=== PATIENT | male | born 1960 | race Caucasian/White ===

== ENCOUNTER 2017-03-07 08:38 | Emergency (ER) | payer MEDICAID ==
[~2017-03-07] VITALS: Ht 165.1 cm; Wt 72.6 kg
[2017-03-07 08:38] VITALS: BP_SYST 157
[~2017-03-07 08:38] MED LIST: LEVA0.31 IH; PHEN30TA41 PO; [UNRECOGNIZED DRUG - CODE] IM
[2017-03-07 09:41] LABS: BASOPHILS % (AUTO) 0.7 % (0.0-2.0); EOSINOPHILS # (AUTO) 0.6 K/uL (0.0-0.4); EOSINOPHILS % (AUTO) 8.9 % (0.0-4.0); HEMATOCRIT 46.9 % (36-54); HEMOGLOBIN 15.3 g/dL (14.0-18.0); LYMPHOCYTES # (AUTO) 1.3 K/uL (1.0-5.5); LYMPHOCYTES % (AUTO) 20.3 % (20.5-51.5); MEAN CORPUSCULAR HEMOGLOBIN 32 pg (27-31); MEAN CORPUSCULAR HGB CONC 33 % (32-36); MEAN CORPUSCULAR VOLUME 97 fL (79.0-98.0); MONOCYTES # (AUTO) 0.8 K/uL (0.0-1.0); MONOCYTES % (AUTO) 12.9 % (1.7-9.3); NEUTROPHILS # (AUTO) 3.7 K/uL (1.8-7.7); NEUTROPHILS % (AUTO) 57.2 % (40.0-70.0); PLATELET COUNT (AUTO) 199 K/uL (130-430); RED BLOOD CELL COUNT(AUTO) 4.86 MIL/uL (4.2-6.2); RED CELL DISTRIBUTION WIDTH 12.1 % (9.0-15.0); WHITE BLOOD COUNT (AUTO) 6.4 K/uL (4.8-10.8)
[2017-03-07 09:57] LABS: INR 1.1 (0.80-1.20); PROTHROMBIN TIME 10.7 SECS (9.5-12.5)
[2017-03-07 10:00] LABS: ALBUMIN 3.5 g/dL (3.4-4.8); CALCIUM 8.8 mg/dL (8.4-11.0); CREATININE 1.13 mg/dL (0.55-1.30); POTASSIUM 4.5 mmol/L (3.5-5.1); TOTAL BILIRUBIN 0.3 mg/dL (0.0-1.0)
[2017-03-07 11:18] VITALS: BP_SYST 132
== END 2017-03-07 11:18 | disposition home or self-care (01) ==
LOC: SED 08:38
DX: M79.89 Other specified soft tissue disorders (principal); Z86.59 Personal history of other mental and behavioral disorders
CPT/HCPCS: 36415; 80053; 85025; 85379; 85610-TC; 85730-TC; 93971; 99285

== ENCOUNTER 2022-05-02 15:46 | Inpatient (IN) | payer MEDICAID ==
[~2022-05-02] VITALS: Ht 172.7 cm; Wt 80.7 kg
[2022-05-02 15:46] VITALS: BP_SYST 116
[~2022-05-02 15:46] MED LIST changes: -PHEN30TA41 PO; +PHEN30TA49 PO
[2022-05-02 17:03] LABS: BASOPHILS % (AUTO) 0.3 % (0.0-2.0); EOSINOPHILS # (AUTO) 0.3 K/uL (0.0-0.4); EOSINOPHILS % (AUTO) 2.7 % (0.0-4.0); HEMATOCRIT 40.4 % (36-54); HEMOGLOBIN 13.4 g/dL (14.0-18.0); LYMPHOCYTES # (AUTO) 1.2 K/uL (1.0-5.5); LYMPHOCYTES % (AUTO) 12.4 % (20.5-51.5); MEAN CORPUSCULAR HEMOGLOBIN 32 pg (27-31); MEAN CORPUSCULAR HGB CONC 33 % (32-36); MEAN CORPUSCULAR VOLUME 97 fL (79.0-98.0); MONOCYTES % (AUTO) 10.3 % (1.7-9.3); NEUTROPHILS # (AUTO) 7.2 K/uL (1.8-7.7); NEUTROPHILS % (AUTO) 74.3 % (40.0-70.0); PLATELET COUNT (AUTO) 149 K/uL (130-430); RED BLOOD CELL COUNT(AUTO) 4.17 MIL/uL (4.2-6.2); RED CELL DISTRIBUTION WIDTH 14.6 % (9.0-15.0); WHITE BLOOD COUNT (AUTO) 9.6 K/uL (4.8-10.8)
[2022-05-02 17:21] LABS: INR 1.1 (0.80-1.20); PROTHROMBIN TIME 11.1 SECS (9.5-12.5)
[2022-05-02 17:49] LABS: ANION GAP 6 (5-15); CALCIUM 8.7 mg/dL (8.4-11.0); CHLORIDE 104 mmol/L (98-107); CREATININE 0.83 mg/dL (0.55-1.30); GLUCOSE 103 mg/dL (70-99); UREA NITROGEN, BLOOD 16 mg/dL (8-21)
[2022-05-02 18:02] LABS: ALBUMIN 2.9 g/dL (3.4-4.8); ASPARTATE AMINOTRANSFERASE 17 U/L (10-37); TOTAL BILIRUBIN 0.4 mg/dL (0.0-1.0)
[2022-05-02 18:05] LABS: GFR AFRICAN AMERICAN 122 mL/min (>90)
[2022-05-02] MEDS ORDERED: FUROSEMIDE 40 MG/4 ML VIAL IVP ONE (18:15)
[2022-05-02] MEDS ORDERED: PANTOPRAZOLE SODIUM 80 MG in NS 100 ML IV ONE (18:15)
[2022-05-02 18:37] LABS: ALANINE AMINOTRANSFERASE 18 U/L (12-78)
[2022-05-02 18:46] LABS: BILIRUBIN,URINE NEGATIVE (NEGATIVE); BLOOD, URINE 2+ (NEGATIVE); CLARITY/URINE CLEAR (CLEAR); COLOR,URINE YELLOW (YELLOW); GLUCOSE,URINE NEGATIVE (NEGATIVE); KETONES,URINE NEGATIVE (NEGATIVE); LEUKOCYTE ESTERASE ,URINE NEGATIVE (NEGATIVE); NITRITE, URINE NEGATIVE (NEGATIVE); PH,URINE 6.5 (5.0-8.0); PROTEIN URINE NEGATIVE (NEGATIVE); UROBILINOGEN,URINE 0.2 (0.2-1.0)
[2022-05-02] MEDS ORDERED: GUAR1PAC4 PO (18:49)
[2022-05-02] MEDS ORDERED: FAMO-132 PO (18:49)
[2022-05-02] MEDS ORDERED: ALBUTEROL HFA INH (18:49)
[2022-05-02] MEDS ORDERED: PHEN60TA11 PO (18:49)
[2022-05-02] MEDS ORDERED: FERR250T2 PO (18:49)
[2022-05-02] MEDS ORDERED: FIBER-LAX PO (18:49)
[2022-05-02] MEDS ORDERED: SCOP1PAT21 TD (18:49)
[2022-05-02] MEDS ORDERED: [UNRECOGNIZED DRUG - CODE] PO (18:49)
[2022-05-02] MEDS ORDERED: ACET325T PO (18:49)
[2022-05-02] MEDS ORDERED: CHLO473M5 PO (18:49)
[2022-05-02] MEDS ORDERED: MULT-1089 PO (18:49)
[2022-05-02] MEDS ORDERED: IBUP-1968 PO (18:49)
[2022-05-02] MEDS ORDERED: GLYC2TAB21 PO (18:49)
[2022-05-02] MEDS ORDERED: POLY17PO4 PO (18:49)
[2022-05-02] MEDS ORDERED: VITD400 PO (18:49)
[2022-05-02] MEDS ORDERED: CLON2TAB11 PO (18:49)
[2022-05-02] MEDS ORDERED: TRAZ-250 PO (18:49)
[2022-05-02] MEDS ORDERED: CARB15DR93 EACH EAR (18:49)
[2022-05-02] MEDS ORDERED: PANTOPRAZOLE SODIUM 40 MG/VIAL (PROTONIX) ONE (18:55)
[2022-05-02 18:58] LABS: BACTERIA,URINE None Seen /HPF (None Seen); MUCUS,URINE None Seen /LPF (None Seen); RBC,URINE 20-50 /HPF (0-3); WBC,URINE 0-3 /HPF (0-3)
[2022-05-02 21:50] VITALS: BP_SYST 120
[2022-05-02 22:00] VITALS: BP_SYST 120
[2022-05-02] MEDS ORDERED: ACETAMINOPHEN 325 MG TABLET PO PRN (22:00)
[2022-05-02] MEDS ORDERED: LevALBUTEROL HCL 1.25 MG/0.5 ML *CONC.* VIAL.NEB (XOPENEX CONC.) INH PRN (22:15)
[2022-05-02] MEDS: PANTOPRAZOLE SODIUM 40 MG/VIAL (PROTONIX) IVP SCH (22:19)
[2022-05-02 22:25] VITALS: BP_SYST 100
[2022-05-02] MEDS: KCL 20 mEq in D5/0.45NS 1000mL 1,000 ML IV SCH (22:32)
[2022-05-02] MEDS ORDERED: KCL 20 mEq in D5/0.45NS 1000mL 1,000 ML IV ONE (22:33)
[2022-05-02] MEDS: LevALBUTEROL HCL 1.25 MG/0.5 ML *CONC.* VIAL.NEB (XOPENEX CONC.) INH SCH (23:35)
[2022-05-03] VITALS: BP_SYST 122
[2022-05-03 06:00] VITALS: BP_SYST 118
[2022-05-03 06:49] LABS: BASOPHILS % (AUTO) 0.4 % (0.0-2.0); EOSINOPHILS # (AUTO) 0.4 K/uL (0.0-0.4); EOSINOPHILS % (AUTO) 7.8 % (0.0-4.0); HEMATOCRIT 41.4 % (36-54); HEMOGLOBIN 13.7 g/dL (14.0-18.0); LYMPHOCYTES # (AUTO) 1.6 K/uL (1.0-5.5); LYMPHOCYTES % (AUTO) 28.2 % (20.5-51.5); MEAN CORPUSCULAR HEMOGLOBIN 32 pg (27-31); MEAN CORPUSCULAR HGB CONC 33 % (32-36); MEAN CORPUSCULAR VOLUME 97 fL (79.0-98.0); MONOCYTES # (AUTO) 0.9 K/uL (0.0-1.0); MONOCYTES % (AUTO) 15.1 % (1.7-9.3); NEUTROPHILS # (AUTO) 2.8 K/uL (1.8-7.7); NEUTROPHILS % (AUTO) 48.5 % (40.0-70.0); PLATELET COUNT (AUTO) 145 K/uL (130-430); RED BLOOD CELL COUNT(AUTO) 4.25 MIL/uL (4.2-6.2); RED CELL DISTRIBUTION WIDTH 14.7 % (9.0-15.0); WHITE BLOOD COUNT (AUTO) 5.7 K/uL (4.8-10.8)
[2022-05-03 07:21] LABS: CALCIUM 8.5 mg/dL (8.4-11.0); CREATININE 0.93 mg/dL (0.55-1.30)
[2022-05-03] MEDS: LevALBUTEROL HCL 1.25 MG/0.5 ML *CONC.* VIAL.NEB (XOPENEX CONC.) INH SCH ×3 (07:21→23:56)
[2022-05-03 08:59] VITALS: BP_SYST 130
[2022-05-03] MEDS: CHLORHEXIDINE GLUC 0.12% 15 ML MOUTHWASH UDC MM SCH ×2 (09:00→22:15)
[2022-05-03] MEDS: GLYCOPYRROLATE 1 MG TABLET PO SCH ×2 (09:00→22:12)
[2022-05-03] MEDS: CHOLECALCIFEROL (VITAMIN D-3) 400 UNIT TABLET PO SCH (12:46)
[2022-05-03] MEDS: PANTOPRAZOLE SODIUM 40 MG/VIAL (PROTONIX) IVP SCH ×2 (12:46→22:13)
[2022-05-03] MEDS: POLYETHYLENE GLYCOL 3350, 17 GM/ POWD.PACK PO SCH (12:46)
[2022-05-03] MEDS: MULTIVITAMINS TAB 1 TABLET PO SCH (12:47)
[2022-05-03] MEDS: PHENobarbital 30 MG TABLET PO SCH (12:47)
[2022-05-03] MEDS: KCL 20 mEq in D5/0.45NS 1000mL 1,000 ML IV SCH ×3 (12:58→22:13)
[2022-05-03 14:47] VITALS: BP_SYST 102; BP_SYST 156
[2022-05-03 18:10] VITALS: BP_SYST 107
[2022-05-03] MEDS: clonazePAM 0.5 MG TABLET PO SCH (22:11)
[2022-05-03] MEDS: traZODone HCL 50 MG TABLET (DESYREL) PO SCH (22:14)
[2022-05-04 00:26] VITALS: BP_SYST 94
[2022-05-04 07:05] LABS: BASOPHILS % (AUTO) 0.3 % (0.0-2.0); EOSINOPHILS # (AUTO) 0.3 K/uL (0.0-0.4); EOSINOPHILS % (AUTO) 6.8 % (0.0-4.0); HEMATOCRIT 40.1 % (36-54); HEMOGLOBIN 13.2 g/dL (14.0-18.0); LYMPHOCYTES # (AUTO) 1.2 K/uL (1.0-5.5); LYMPHOCYTES % (AUTO) 26.2 % (20.5-51.5); MEAN CORPUSCULAR HEMOGLOBIN 32 pg (27-31); MEAN CORPUSCULAR HGB CONC 33 % (32-36); MEAN CORPUSCULAR VOLUME 98 fL (79.0-98.0); MONOCYTES # (AUTO) 0.7 K/uL (0.0-1.0); MONOCYTES % (AUTO) 14.7 % (1.7-9.3); NEUTROPHILS # (AUTO) 2.4 K/uL (1.8-7.7); PLATELET COUNT (AUTO) 143 K/uL (130-430); RED CELL DISTRIBUTION WIDTH 14.6 % (9.0-15.0); WHITE BLOOD COUNT (AUTO) 4.6 K/uL (4.8-10.8)
[2022-05-04 07:08] LABS: INR 1.1 (0.80-1.20); PROTHROMBIN TIME 10.7 SECS (9.5-12.5)
[2022-05-04 07:14] LABS: CALCIUM 8.5 mg/dL (8.4-11.0); CREATININE 0.73 mg/dL (0.55-1.30)
[2022-05-04] MEDS: LevALBUTEROL HCL 1.25 MG/0.5 ML *CONC.* VIAL.NEB (XOPENEX CONC.) INH SCH ×2 (07:46→15:48)
[2022-05-04 07:59] VITALS: BP_SYST 150
[2022-05-04] MEDS: GLYCOPYRROLATE 1 MG TABLET PO SCH ×2 (09:00→21:00)
[2022-05-04] MEDS: MULTIVITAMINS TAB 1 TABLET PO SCH (10:15)
[2022-05-04] MEDS: CHOLECALCIFEROL (VITAMIN D-3) 400 UNIT TABLET PO SCH (10:16)
[2022-05-04] MEDS: PHENobarbital 30 MG TABLET PO SCH (10:16)
[2022-05-04] MEDS: CHLORHEXIDINE GLUC 0.12% 15 ML MOUTHWASH UDC MM SCH (10:17)
[2022-05-04] MEDS: PANTOPRAZOLE SODIUM 40 MG/VIAL (PROTONIX) IVP SCH ×2 (10:17→21:00)
[2022-05-04] MEDS: POLYETHYLENE GLYCOL 3350, 17 GM/ POWD.PACK PO SCH (10:18)
[2022-05-04] MEDS: KCL 20 mEq in D5/0.45NS 1000mL 1,000 ML IV SCH ×2 (10:39→12:45)
[2022-05-04 11:34] VITALS: BP_SYST 105
[2022-05-04 18:07] VITALS: BP_SYST 116
[2022-05-04 20:03] VITALS: BP_SYST 106
[2022-05-04 20:09] VITALS: BP_SYST 102
[2022-05-04] MEDS: clonazePAM 0.5 MG TABLET PO SCH (21:00)
[2022-05-04] MEDS: traZODone HCL 50 MG TABLET (DESYREL) PO SCH (21:00)
[2022-05-05] MEDS: LevALBUTEROL HCL 1.25 MG/0.5 ML *CONC.* VIAL.NEB (XOPENEX CONC.) INH SCH ×4 (00:01→23:27)
[2022-05-05 06:48] LABS: INR 1.1 (0.80-1.20); PROTHROMBIN TIME 10.7 SECS (9.5-12.5)
[2022-05-05 07:01] LABS: CALCIUM 8.9 mg/dL (8.4-11.0); CREATININE 0.69 mg/dL (0.55-1.30)
[2022-05-05 07:43] LABS: BASOPHILS % (AUTO) 0.5 % (0.0-2.0); EOSINOPHILS # (AUTO) 0.3 K/uL (0.0-0.4); EOSINOPHILS % (AUTO) 6.2 % (0.0-4.0); HEMATOCRIT 43.9 % (36-54); HEMOGLOBIN 14.6 g/dL (14.0-18.0); LYMPHOCYTES # (AUTO) 1.2 K/uL (1.0-5.5); LYMPHOCYTES % (AUTO) 21.8 % (20.5-51.5); MEAN CORPUSCULAR HEMOGLOBIN 33 pg (27-31); MEAN CORPUSCULAR HGB CONC 33 % (32-36); MEAN CORPUSCULAR VOLUME 98 fL (79.0-98.0); MONOCYTES # (AUTO) 0.7 K/uL (0.0-1.0); MONOCYTES % (AUTO) 12.8 % (1.7-9.3); NEUTROPHILS # (AUTO) 3.2 K/uL (1.8-7.7); NEUTROPHILS % (AUTO) 58.7 % (40.0-70.0); PLATELET COUNT (AUTO) 160 K/uL (130-430); RED BLOOD CELL COUNT(AUTO) 4.49 MIL/uL (4.2-6.2); RED CELL DISTRIBUTION WIDTH 14.2 % (9.0-15.0); WHITE BLOOD COUNT (AUTO) 5.5 K/uL (4.8-10.8)
[2022-05-05 08:38] VITALS: BP_SYST 116
[2022-05-05] MEDS: CHLORHEXIDINE GLUC 0.12% 15 ML MOUTHWASH UDC MM SCH ×3 (09:00→21:18)
[2022-05-05] MEDS: PANTOPRAZOLE SODIUM 40 MG/VIAL (PROTONIX) IVP SCH ×2 (10:54→21:00)
[2022-05-05] MEDS: SCOPOLAMINE HYDROBROMIDE 1 MG PATCH .72 H (TRANSDERM-SCOP) TD SCH (10:54)
[2022-05-05] MEDS: POLYETHYLENE GLYCOL 3350, 17 GM/ POWD.PACK PO SCH (10:54)
[2022-05-05] MEDS: CHOLECALCIFEROL (VITAMIN D-3) 400 UNIT TABLET PO SCH (10:55)
[2022-05-05] MEDS: MULTIVITAMINS TAB 1 TABLET PO SCH (10:55)
[2022-05-05] MEDS: PHENobarbital 30 MG TABLET PO SCH (10:55)
[2022-05-05] MEDS: GLYCOPYRROLATE 1 MG TABLET PO SCH ×2 (10:56→21:18)
[2022-05-05 11:56] VITALS: BP_SYST 141
[2022-05-05 16:14] VITALS: BP_SYST 133
[2022-05-05] MEDS: KCL 20 mEq in D5/0.45NS 1000mL 1,000 ML IV SCH ×2 (17:00→21:49)
[2022-05-05 20:00] VITALS: BP_SYST 127
[2022-05-05] MEDS: traZODone HCL 50 MG TABLET (DESYREL) PO SCH (21:18)
[2022-05-05] MEDS: clonazePAM 0.5 MG TABLET PO SCH (21:18)
[2022-05-06 00:42] VITALS: BP_SYST 107
[2022-05-06] MEDS: LevALBUTEROL HCL 1.25 MG/0.5 ML *CONC.* VIAL.NEB (XOPENEX CONC.) INH SCH ×3 (07:41→23:53)
[2022-05-06 08:00] VITALS: BP_SYST 110
[2022-05-06] MEDS: PANTOPRAZOLE SODIUM 40 MG/VIAL (PROTONIX) IVP SCH ×2 (09:00→22:56)
[2022-05-06] MEDS: GLYCOPYRROLATE 1 MG TABLET PO SCH ×2 (09:00→22:54)
[2022-05-06] MEDS: CHLORHEXIDINE GLUC 0.12% 15 ML MOUTHWASH UDC MM SCH ×2 (09:58→22:58)
[2022-05-06] MEDS: POLYETHYLENE GLYCOL 3350, 17 GM/ POWD.PACK PO SCH (09:58)
[2022-05-06] MEDS: CHOLECALCIFEROL (VITAMIN D-3) 400 UNIT TABLET PO SCH (09:58)
[2022-05-06] MEDS: PHENobarbital 30 MG TABLET PO SCH (09:59)
[2022-05-06] MEDS: SCOPOLAMINE HYDROBROMIDE 1 MG PATCH .72 H (TRANSDERM-SCOP) TD SCH (09:59)
[2022-05-06] MEDS: MULTIVITAMINS TAB 1 TABLET PO SCH (09:59)
[2022-05-06 11:33] VITALS: BP_SYST 118
[2022-05-06 12:00] VITALS: BP_SYST 114
[2022-05-06] MEDS: KCL 20 mEq in D5/0.45NS 1000mL 1,000 ML IV SCH ×2 (13:00→23:00)
[2022-05-06 16:26] VITALS: BP_SYST 112
[2022-05-06 20:00] VITALS: BP_SYST 129
[2022-05-06] MEDS: traZODone HCL 50 MG TABLET (DESYREL) PO SCH (22:54)
[2022-05-06] MEDS: clonazePAM 0.5 MG TABLET PO SCH (22:56)
[2022-05-07] VITALS: BP_SYST 112
[2022-05-07 07:01] LABS: BASOPHILS % (AUTO) 0.6 % (0.0-2.0); EOSINOPHILS # (AUTO) 0.4 K/uL (0.0-0.4); EOSINOPHILS % (AUTO) 8.6 % (0.0-4.0); HEMATOCRIT 43.3 % (36-54); HEMOGLOBIN 14.5 g/dL (14.0-18.0); LYMPHOCYTES # (AUTO) 1.5 K/uL (1.0-5.5); LYMPHOCYTES % (AUTO) 30.5 % (20.5-51.5); MEAN CORPUSCULAR HEMOGLOBIN 32 pg (27-31); MEAN CORPUSCULAR HGB CONC 34 % (32-36); MEAN CORPUSCULAR VOLUME 97 fL (79.0-98.0); MONOCYTES # (AUTO) 0.7 K/uL (0.0-1.0); MONOCYTES % (AUTO) 13.3 % (1.7-9.3); NEUTROPHILS # (AUTO) 2.3 K/uL (1.8-7.7); PLATELET COUNT (AUTO) 152 K/uL (130-430); RED BLOOD CELL COUNT(AUTO) 4.48 MIL/uL (4.2-6.2); WHITE BLOOD COUNT (AUTO) 4.9 K/uL (4.8-10.8)
[2022-05-07 07:23] LABS: CALCIUM 8.6 mg/dL (8.4-11.0); CREATININE 0.88 mg/dL (0.55-1.30)
[2022-05-07] MEDS: LevALBUTEROL HCL 1.25 MG/0.5 ML *CONC.* VIAL.NEB (XOPENEX CONC.) INH SCH ×2 (08:00→15:24)
[2022-05-07] MEDS: KCL 20 mEq in D5/0.45NS 1000mL 1,000 ML IV SCH (09:00)
[2022-05-07] MEDS: PANTOPRAZOLE SODIUM 40 MG/VIAL (PROTONIX) IVP SCH (09:00)
[2022-05-07] MEDS: CHOLECALCIFEROL (VITAMIN D-3) 400 UNIT TABLET PO SCH (09:53)
[2022-05-07] MEDS: PHENobarbital 30 MG TABLET PO SCH (09:53)
[2022-05-07] MEDS: MULTIVITAMINS TAB 1 TABLET PO SCH (09:54)
[2022-05-07] MEDS: GLYCOPYRROLATE 1 MG TABLET PO SCH (09:55)
[2022-05-07] MEDS: POLYETHYLENE GLYCOL 3350, 17 GM/ POWD.PACK PO SCH (09:55)
[2022-05-07] MEDS: CHLORHEXIDINE GLUC 0.12% 15 ML MOUTHWASH UDC MM SCH (09:56)
[2022-05-07 11:20] VITALS: BP_SYST 100
[2022-05-07 15:40] VITALS: BP_SYST 107
[2022-05-07 17:38] VITALS: BP_SYST 110
[2022-05-07 17:44] VITALS: BP_SYST 110
== END 2022-05-07 19:05 | disposition home or self-care (01) | DRG 253 ==
LOC: SED 15:46 → STU 18:35
PROVIDERS: ADMIT Family Medicine; ATTEND Family Medicine
DX: K92.2 Gastrointestinal hemorrhage, unspecified (principal); E44.0 Moderate protein-calorie malnutrition; R56.9 Unspecified convulsions; F03.90 Unspecified dementia, unspecified severity, without behavioral disturbance, psychotic disturbance, mood disturbance, and anxiety; R00.1 Bradycardia, unspecified; Z20.822 Contact with and (suspected) exposure to COVID-19; F79 Unspecified intellectual disabilities; Z68.27 Body mass index [BMI] 27.0-27.9, adult; D64.9 Anemia, unspecified
CPT/HCPCS: 36415; 70450-TC; 71045; 76376; 76700-TC; 80048; 80053; 81000; 82550; 82962; 83735; 83880; 84484; 85025; 85610-TC; 85730-TC; 86886; 86900; 86901; 87040; 87086; 93005; 94640; 94760; 96361; 96374; 99285; C9113; G0378; J1940; J7612

== ENCOUNTER 2023-08-04 22:22 | Inpatient (IN) | payer MEDICAID ==
[~2023-08-04] VITALS: Ht 172.7 cm; Wt 84.4 kg
[~2023-08-04 22:22] MED LIST changes: +ACET325T PO; +ALBUTEROL HFA INH; +CARB15DR93 EACH EAR; +CHLO473M5 PO; +CLON2TAB11 PO; +FAMO-132 PO; +FERR250T2 PO; +FIBER-LAX PO; +GLYC2TAB21 PO; +GUAR1PAC4 PO; +IBUP-1968 PO; +MULT-1089 PO; +PHEN60TA11 PO; +POLY17PO4 PO; +SCOP1PAT21 TD; +TRAZ-250 PO; +VITD400 PO; +[UNRECOGNIZED DRUG - CODE] PO
[2023-08-04 22:26] VITALS: BP_SYST 103; PULSE 55; RESP 13; TEMP 96.5; O2SAT 95
[2023-08-04 23:38] LABS: BASOPHILS % (AUTO) 0.2 % (0.0-2.0); EOSINOPHILS # (AUTO) 0.2 K/uL (0.0-0.4); HEMATOCRIT 39.4 % (36-54); HEMOGLOBIN 13.4 g/dL (14.0-18.0); LYMPHOCYTES % (AUTO) 17.7 % (20.5-51.5); MEAN CORPUSCULAR HEMOGLOBIN 32 pg (27-31); MEAN CORPUSCULAR HGB CONC 34 % (32-36); MEAN CORPUSCULAR VOLUME 94 fL (79.0-98.0); MONOCYTES # (AUTO) 0.5 K/uL (0.0-1.0); MONOCYTES % (AUTO) 9.6 % (1.7-9.3); NEUTROPHILS # (AUTO) 3.9 K/uL (1.8-7.7); NEUTROPHILS % (AUTO) 69.5 % (40.0-70.0); PLATELET COUNT (AUTO) 177 K/uL (130-430); RED BLOOD CELL COUNT(AUTO) 4.18 MIL/uL (4.2-6.2); RED CELL DISTRIBUTION WIDTH 13.2 % (9.0-15.0); WHITE BLOOD COUNT (AUTO) 5.7 K/uL (4.8-10.8)
[2023-08-04 23:41] LABS: ANION GAP 6 (5-15); CALCIUM 8.6 mg/dL (8.4-11.0); CARBON DIOXIDE 30 mmol/L (23-29); CHLORIDE 106 mmol/L (98-107); CREATININE 0.78 mg/dL (0.55-1.30); GFR AFRICAN AMERICAN 130 mL/min (>90); GLUCOSE 109 mg/dL (74-106); POTASSIUM 3.5 mmol/L (3.5-5.1); SODIUM SERUM 142 mmol/L (136-145); UREA NITROGEN, BLOOD 9 mg/dL (8-21)
[2023-08-04 23:44] LABS: GFR NON AFRICAN-AMERICAN 108 mL/min (>90)
[2023-08-04 23:50] LABS: ALANINE AMINOTRANSFERASE 17 U/L (12-78); ALBUMIN 2.8 g/dL (3.4-4.8); ASPARTATE AMINOTRANSFERASE 16 U/L (10-37); TOTAL BILIRUBIN 0.2 mg/dL (0.0-1.0); TOTAL PROTEIN, SERUM 7.4 g/dL (6.4-8.3)
[2023-08-04 23:57] LABS: COVID19 ANTIGEN SOFIA FIA NEGATIVE (NEGATIVE)
[2023-08-05 00:02] LABS: INFLUENZA TYPE A Negative (NEGATIVE); INFLUENZA TYPE B NEGATIVE (NEGATIVE)
[2023-08-05 01:03] LABS: ABG O2 SAT% ESTIMATE 97.4 % (94.0-100.0); ALLEN'S TEST POSITIVE (P); BLOOD GAS BASE EXCESS 2.4 mmol/L (-3.0-3.0); BLOOD GAS HCO3 28.2 mmol/L (21.0-27.0); BLOOD GAS PCO2 47.9 mmHg (32.0-45.0); BLOOD GAS PH 7.388 (7.350-7.450); BLOOD GAS PO2 99.6 mmHg (75.0-100.0)
[2023-08-05] MEDS ORDERED: AZITHROMYCIN 250 MG TABLET PO ONE (02:15)
[2023-08-05] MEDS ORDERED: PIPERACILLIN/TAZOBACTAM 4.5 GM/VIAL (ZOSYN) IV ONE (02:19)
[2023-08-05] MEDS ORDERED: VANCOMYCIN HCL 1000 MG/VIAL IV ONE (02:21)
[2023-08-05] MEDS ORDERED: AZITHROMYCIN 500 MG/VIAL (ZITHROMAX) IV ONE (02:22)
[2023-08-05] MEDS: NACL 0.9% 1,000 ML IV ONE (02:42)
[2023-08-05] MEDS: ATROPINE SULFATE 1 MG/10 ML SYRINGE IVP ONE (02:54)
[2023-08-05] MEDS: AZITHROMYCIN 500 MG in NS 250 ML IV ONE (03:00)
[2023-08-05 04:39] LABS: BARBITURATE, URINE POSITIVE (NEG <=200); BENZODIAZEPINE, URINE NEGATIVE (NEG <=150); CANNABINOID, URINE NEGATIVE (NEG <=50); COCAINE, URINE NEGATIVE (NEG <=150); METHAMPHETAMINES SCREEN,URINE NEGATIVE (NEG <=500); OPIATE, URINE NEGATIVE (NEG <=100); PHENCYCLIDINE SCREEN,URINE NEGATIVE (NEG <=25); UR TRICYCLIC ANTIDEPRESSANTS NEGATIVE (NEG <=300); URINE AMPHETAMINE NEGATIVE (NEG <=500); URINE METHADONE NEGATIVE (NEG <=200); URINE OXYCODONE SCREEN NEGATIVE (NEG <=100)
[2023-08-05] MEDS: PIPERACILLIN/TAZO 4.5 GM in NS 100 ML IV ONE (05:00)
[2023-08-05] MEDS ORDERED: ATOR20TA64 PO (05:34)
[2023-08-05] MEDS ORDERED: AUG875 PO (05:34)
[2023-08-05] MEDS ORDERED: CLOT15CR5 TP (05:34)
[2023-08-05] MEDS ORDERED: FURO20TA4 PO (05:34)
[2023-08-05] MEDS ORDERED: LEVE500T21 PO (05:34)
[2023-08-05] MEDS: VANCOMYCIN HCL 1,000 MG in NS 250 ML IV SCH (06:13)
[2023-08-05] MEDS ORDERED: DOPamine PREMIX 250 ML IV PRN (09:00)
[2023-08-05] MEDS ORDERED: ONDANSETRON HCL 4 MG/2 ML VIAL IVP PRN (11:45)
[2023-08-05] MEDS ORDERED: ACETAMINOPHEN 325 MG TABLET PO PRN ×2 (11:45→12:15)
[2023-08-05] MEDS ORDERED: LORazepam 2 MG/ML VIAL IVP PRN (11:45)
[2023-08-05] MEDS ORDERED: NALOXONE HCL 0.4 MG/ML AMP (NARCAN) IVP PRN ×2 (11:45)
[2023-08-05] MEDS ORDERED: SCOPOLAMINE HYDROBROMIDE 1 MG PATCH .72 H (TRANSDERM-SCOP) TD SCH (11:45)
[2023-08-05] MEDS ORDERED: HYDROcodone/ACETAMIN 10-325 MG TAB PO PRN (11:45)
[2023-08-05] MEDS ORDERED: IBUPROFEN 400 MG TABLET PO PRN (11:45)
[2023-08-05] MEDS ORDERED: HYDROcodone/ACETAMIN 5-325 MG TAB (NORCO/ VICODIN) PO PRN (11:45)
[2023-08-05] MEDS: DOPamine PREMIX 250 ML IV PRN (12:06)
[2023-08-05 12:14] LABS: PROTHROMBIN TIME 10.7 SECS (9.5-12.5)
[2023-08-05 13:03] VITALS: BP_SYST 96; PULSE 62; O2SAT 97
[2023-08-05] MEDS: NORMAL SALINE 5 ML DISP.SYRIN IVF SCH (15:00)
[2023-08-05] MEDS ORDERED: ALBUTEROL 90 MCG INH SCH (15:00)
[2023-08-05 15:11] VITALS: O2SAT 92
[2023-08-05] MEDS: ALBUTEROL SULFATE 0.083% 2.5 MG/3 ML VIAL.NEB INH SCH (15:11)
[2023-08-05 19:49] VITALS: O2SAT 97
[2023-08-05] MEDS ORDERED: CARBAMIDE PEROXIDE 6.5% EAR DROPS (DEBROX) OT SCH (21:00)
[2023-08-05] MEDS ORDERED: FIBER LAX PO SCH (21:00)
[2023-08-05] MEDS ORDERED: GLYCOPYRROLATE PO SCH (21:00)
[2023-08-05] MEDS: AMOXICILLIN/POTASSIUM CLAV 875 MG TABLET PO SCH (21:04)
[2023-08-05] MEDS: PHENobarbital 30 MG TABLET PO SCH (21:06)
[2023-08-05] MEDS: traZODone HCL 50 MG TABLET (DESYREL) PO SCH (21:07)
[2023-08-05] MEDS: levETIRAcetam 500 MG TABLET PO SCH (21:08)
[2023-08-05] MEDS: FAMOTIDINE 20 MG TABLET PO SCH (21:09)
[2023-08-05] MEDS: GLYCOPYRROLATE 1 MG TABLET PO SCH (21:10)
[2023-08-05] MEDS: CHLORHEXIDINE GLUC 0.12% 15 ML MOUTHWASH UDC MM SCH (21:11)
[2023-08-05] MEDS: clonazePAM 0.5 MG TABLET PO SCH (21:42)
[2023-08-05 23:36] VITALS: O2SAT 94
[2023-08-06] VITALS (20 sets, daily range): BP systolic 89–127; PULSE 48–71; RESP 12–20; TEMP 98–98.9; O2SAT 91–97
[2023-08-06] MEDS ORDERED: PIPERACILLIN/TAZOBACTAM 4.5 GM/VIAL (ZOSYN) IV ONE (05:59)
[2023-08-06] MEDS: PIPERACILLIN/TAZO 4.5 GM in D5W 100 ML IV SCH (06:07)
[2023-08-06 06:18] LABS: BASOPHILS % (AUTO) 0.5 % (0.0-2.0); EOSINOPHILS # (AUTO) 0.2 K/uL (0.0-0.4); EOSINOPHILS % (AUTO) 2.6 % (0.0-4.0); HEMATOCRIT 38.3 % (36-54); LYMPHOCYTES # (AUTO) 1.1 K/uL (1.0-5.5); LYMPHOCYTES % (AUTO) 16.7 % (20.5-51.5); MEAN CORPUSCULAR HEMOGLOBIN 32 pg (27-31); MEAN CORPUSCULAR HGB CONC 34 % (32-36); MEAN CORPUSCULAR VOLUME 94 fL (79.0-98.0); MONOCYTES # (AUTO) 0.8 K/uL (0.0-1.0); MONOCYTES % (AUTO) 12.7 % (1.7-9.3); NEUTROPHILS # (AUTO) 4.4 K/uL (1.8-7.7); NEUTROPHILS % (AUTO) 67.5 % (40.0-70.0); PLATELET COUNT (AUTO) 186 K/uL (130-430); RED BLOOD CELL COUNT(AUTO) 4.07 MIL/uL (4.2-6.2); RED CELL DISTRIBUTION WIDTH 13.5 % (9.0-15.0); WHITE BLOOD COUNT (AUTO) 6.5 K/uL (4.8-10.8)
[2023-08-06 06:55] LABS: ALBUMIN 2.5 g/dL (3.4-4.8); CALCIUM 8.3 mg/dL (8.4-11.0); CREATININE 0.74 mg/dL (0.55-1.30); POTASSIUM 3.6 mmol/L (3.5-5.1); TOTAL BILIRUBIN 0.3 mg/dL (0.0-1.0); TOTAL PROTEIN, SERUM 7.2 g/dL (6.4-8.3)
[2023-08-06] MEDS ORDERED: ATORVASTATIN 20 MG TABLET PO SCH (09:00)
[2023-08-06] MEDS ORDERED: FUROSEMIDE 20 MG TABLET PO SCH (09:00)
[2023-08-06] MEDS ORDERED: GUAR GUM PO SCH (09:00)
[2023-08-06] MEDS: CHOLECALCIFEROL (VITAMIN D-3) 400 UNIT TABLET PO SCH (09:00)
[2023-08-06] MEDS: CLOTRIMAZOLE/BETAMET DIPROP 15 GM TUBE TP SCH (09:00)
[2023-08-06] MEDS: FUROSEMIDE 20 MG/2 ML VIAL IVP SCH (09:44)
[2023-08-06] MEDS: MULTIVITAMINS TAB 1 TABLET PO SCH (09:44)
[2023-08-06] MEDS: FERROUS SULFATE 325 MG TABLET.DR PO SCH (09:44)
[2023-08-07] VITALS (38 sets, daily range): BP systolic 74–134; PULSE 46–77; RESP 16–19; TEMP 97.5–98.5; O2SAT 86–100
[2023-08-07 04:40] LABS: BASOPHILS % (AUTO) 0.3 % (0.0-2.0); EOSINOPHILS # (AUTO) 0.2 K/uL (0.0-0.4); EOSINOPHILS % (AUTO) 2.7 % (0.0-4.0); HEMATOCRIT 38.6 % (36-54); HEMOGLOBIN 13.1 g/dL (14.0-18.0); LYMPHOCYTES # (AUTO) 1.3 K/uL (1.0-5.5); LYMPHOCYTES % (AUTO) 18.5 % (20.5-51.5); MEAN CORPUSCULAR HEMOGLOBIN 32 pg (27-31); MEAN CORPUSCULAR HGB CONC 34 % (32-36); MEAN CORPUSCULAR VOLUME 94 fL (79.0-98.0); MONOCYTES # (AUTO) 0.9 K/uL (0.0-1.0); MONOCYTES % (AUTO) 13.1 % (1.7-9.3); NEUTROPHILS # (AUTO) 4.4 K/uL (1.8-7.7); NEUTROPHILS % (AUTO) 65.4 % (40.0-70.0); PLATELET COUNT (AUTO) 199 K/uL (130-430); RED BLOOD CELL COUNT(AUTO) 4.12 MIL/uL (4.2-6.2); RED CELL DISTRIBUTION WIDTH 13.3 % (9.0-15.0); WHITE BLOOD COUNT (AUTO) 6.8 K/uL (4.8-10.8)
[2023-08-07 05:10] LABS: ALBUMIN 2.5 g/dL (3.4-4.8); CALCIUM 8.2 mg/dL (8.4-11.0); CREATININE 0.84 mg/dL (0.55-1.30); POTASSIUM 3.6 mmol/L (3.5-5.1); TOTAL BILIRUBIN 0.3 mg/dL (0.0-1.0); TOTAL PROTEIN, SERUM 7.1 g/dL (6.4-8.3)
[2023-08-07 05:30] LABS: ERYTHROCYTE SEDIMENTATION RATE 46 MM/HR (0-15)
[2023-08-08] VITALS (45 sets, daily range): BP systolic 69–140; PULSE 40–72; RESP 11–27; TEMP 96.4–98.5; O2SAT 47–99
[2023-08-08 04:06] LABS: ERYTHROCYTE SEDIMENTATION RATE 57 MM/HR (0-15)
[2023-08-08 04:33] LABS: BASOPHILS % (AUTO) 0.4 % (0.0-2.0); CREATININE 0.97 mg/dL (0.55-1.30); EOSINOPHILS # (AUTO) 0.2 K/uL (0.0-0.4); EOSINOPHILS % (AUTO) 2.9 % (0.0-4.0); HEMATOCRIT 42.9 % (36-54); HEMOGLOBIN 14.5 g/dL (14.0-18.0); LYMPHOCYTES # (AUTO) 0.9 K/uL (1.0-5.5); LYMPHOCYTES % (AUTO) 10.7 % (20.5-51.5); MEAN CORPUSCULAR HEMOGLOBIN 32 pg (27-31); MEAN CORPUSCULAR HGB CONC 34 % (32-36); MEAN CORPUSCULAR VOLUME 94 fL (79.0-98.0); MONOCYTES # (AUTO) 0.9 K/uL (0.0-1.0); MONOCYTES % (AUTO) 10.7 % (1.7-9.3); NEUTROPHILS # (AUTO) 6.2 K/uL (1.8-7.7); NEUTROPHILS % (AUTO) 75.3 % (40.0-70.0); PLATELET COUNT (AUTO) 216 K/uL (130-430); RED BLOOD CELL COUNT(AUTO) 4.56 MIL/uL (4.2-6.2); RED CELL DISTRIBUTION WIDTH 13.1 % (9.0-15.0); WHITE BLOOD COUNT (AUTO) 8.3 K/uL (4.8-10.8)
[2023-08-08] MEDS: CALCIUM GLUC 2 GM/100ML-NACL 100 ML IV ONE (11:49)
[2023-08-09] VITALS (49 sets, daily range): BP systolic 64–154; PULSE 37–70; RESP 12–33; TEMP 96.7–98.6; O2SAT 90–100
[2023-08-09 05:06] LABS: ERYTHROCYTE SEDIMENTATION RATE 46 MM/HR (0-15)
[2023-08-09 05:32] LABS: BASOPHILS % (AUTO) 0.4 % (0.0-2.0); EOSINOPHILS # (AUTO) 0.2 K/uL (0.0-0.4); EOSINOPHILS % (AUTO) 3.2 % (0.0-4.0); HEMATOCRIT 42.6 % (36-54); HEMOGLOBIN 14.8 g/dL (14.0-18.0); LYMPHOCYTES # (AUTO) 1.3 K/uL (1.0-5.5); LYMPHOCYTES % (AUTO) 18.4 % (20.5-51.5); MEAN CORPUSCULAR HEMOGLOBIN 33 pg (27-31); MEAN CORPUSCULAR HGB CONC 35 % (32-36); MEAN CORPUSCULAR VOLUME 94 fL (79.0-98.0); MONOCYTES % (AUTO) 13.5 % (1.7-9.3); NEUTROPHILS # (AUTO) 4.6 K/uL (1.8-7.7); NEUTROPHILS % (AUTO) 64.5 % (40.0-70.0); PLATELET COUNT (AUTO) 246 K/uL (130-430); RED BLOOD CELL COUNT(AUTO) 4.53 MIL/uL (4.2-6.2); RED CELL DISTRIBUTION WIDTH 13.5 % (9.0-15.0); WHITE BLOOD COUNT (AUTO) 7.1 K/uL (4.8-10.8)
[2023-08-09 06:17] LABS: ALBUMIN 2.7 g/dL (3.4-4.8); CREATININE 1.07 mg/dL (0.55-1.30); POTASSIUM 4.1 mmol/L (3.5-5.1); TOTAL BILIRUBIN 0.2 mg/dL (0.0-1.0); TOTAL PROTEIN, SERUM 8.1 g/dL (6.4-8.3)
[2023-08-09] MEDS: MIDODRINE HCL 5 MG TABLET (PROAMATINE) PO SCH (15:59)
[2023-08-10] VITALS (39 sets, daily range): BP systolic 85–121; PULSE 44–64; RESP 10–27; TEMP 96.2–97.8; O2SAT 87–98
[2023-08-10 06:40] LABS: BASOPHILS % (AUTO) 0.4 % (0.0-2.0); EOSINOPHILS # (AUTO) 0.2 K/uL (0.0-0.4); EOSINOPHILS % (AUTO) 4.3 % (0.0-4.0); HEMATOCRIT 41.4 % (36-54); HEMOGLOBIN 13.9 g/dL (14.0-18.0); LYMPHOCYTES # (AUTO) 1.1 K/uL (1.0-5.5); LYMPHOCYTES % (AUTO) 22.9 % (20.5-51.5); MEAN CORPUSCULAR HEMOGLOBIN 32 pg (27-31); MEAN CORPUSCULAR HGB CONC 34 % (32-36); MEAN CORPUSCULAR VOLUME 94 fL (79.0-98.0); MONOCYTES # (AUTO) 0.6 K/uL (0.0-1.0); MONOCYTES % (AUTO) 12.7 % (1.7-9.3); NEUTROPHILS # (AUTO) 2.8 K/uL (1.8-7.7); NEUTROPHILS % (AUTO) 59.7 % (40.0-70.0); PLATELET COUNT (AUTO) 229 K/uL (130-430); RED BLOOD CELL COUNT(AUTO) 4.41 MIL/uL (4.2-6.2); RED CELL DISTRIBUTION WIDTH 13.3 % (9.0-15.0); WHITE BLOOD COUNT (AUTO) 4.8 K/uL (4.8-10.8)
[2023-08-10 07:20] LABS: CALCIUM 8.6 mg/dL (8.4-11.0); CREATININE 0.94 mg/dL (0.55-1.30); POTASSIUM 3.9 mmol/L (3.5-5.1)
[2023-08-10 08:26] LABS: ERYTHROCYTE SEDIMENTATION RATE 64 MM/HR (0-15)
[2023-08-11] VITALS (38 sets, daily range): BP systolic 82–150; PULSE 37–55; RESP 11–21; TEMP 97.7–98.4; O2SAT 92–100
[2023-08-11 06:10] LABS: BASOPHILS % (AUTO) 0.4 % (0.0-2.0); EOSINOPHILS # (AUTO) 0.3 K/uL (0.0-0.4); EOSINOPHILS % (AUTO) 3.7 % (0.0-4.0); HEMATOCRIT 40.5 % (36-54); HEMOGLOBIN 13.7 g/dL (14.0-18.0); LYMPHOCYTES # (AUTO) 1.2 K/uL (1.0-5.5); LYMPHOCYTES % (AUTO) 13.6 % (20.5-51.5); MEAN CORPUSCULAR HEMOGLOBIN 32 pg (27-31); MEAN CORPUSCULAR HGB CONC 34 % (32-36); MEAN CORPUSCULAR VOLUME 94 fL (79.0-98.0); MONOCYTES # (AUTO) 1.1 K/uL (0.0-1.0); NEUTROPHILS % (AUTO) 69.3 % (40.0-70.0); PLATELET COUNT (AUTO) 232 K/uL (130-430); RED CELL DISTRIBUTION WIDTH 13.2 % (9.0-15.0); WHITE BLOOD COUNT (AUTO) 8.6 K/uL (4.8-10.8)
[2023-08-11 06:15] LABS: CALCIUM 8.5 mg/dL (8.4-11.0); CREATININE 0.85 mg/dL (0.55-1.30); POTASSIUM 3.8 mmol/L (3.5-5.1)
[2023-08-11 06:36] LABS: ERYTHROCYTE SEDIMENTATION RATE 67 MM/HR (0-15)
[2023-08-12] VITALS (31 sets, daily range): BP systolic 88–115; PULSE 36–56; RESP 9–22; TEMP 97.6–98.6; O2SAT 91–100
[2023-08-12 05:11] LABS: EOSINOPHILS # (AUTO) 0.4 K/uL (0.0-0.4); HEMOGLOBIN 13.9 g/dL (14.0-18.0); MEAN CORPUSCULAR HGB CONC 34 % (32-36); MONOCYTES # (AUTO) 0.8 K/uL (0.0-1.0); MONOCYTES % (AUTO) 13.4 % (1.7-9.3); NEUTROPHILS # (AUTO) 3.2 K/uL (1.8-7.7)
[2023-08-12 05:52] LABS: ALBUMIN 2.7 g/dL (3.4-4.8); CALCIUM 8.7 mg/dL (8.4-11.0); CREATININE 1.06 mg/dL (0.55-1.30); POTASSIUM 4.4 mmol/L (3.5-5.1); TOTAL BILIRUBIN 0.2 mg/dL (0.0-1.0); TOTAL PROTEIN, SERUM 7.8 g/dL (6.4-8.3)
[2023-08-12 05:59] LABS: BASOPHILS % (AUTO) 0.5 % (0.0-2.0); EOSINOPHILS % (AUTO) 6.6 % (0.0-4.0); HEMATOCRIT 41.1 % (36-54); LYMPHOCYTES # (AUTO) 1.3 K/uL (1.0-5.5); LYMPHOCYTES % (AUTO) 23.3 % (20.5-51.5); MEAN CORPUSCULAR HEMOGLOBIN 32 pg (27-31); MEAN CORPUSCULAR VOLUME 95 fL (79.0-98.0); NEUTROPHILS % (AUTO) 56.2 % (40.0-70.0); PLATELET COUNT (AUTO) 240 K/uL (130-430); RED BLOOD CELL COUNT(AUTO) 4.35 MIL/uL (4.2-6.2); RED CELL DISTRIBUTION WIDTH 13.2 % (9.0-15.0); WHITE BLOOD COUNT (AUTO) 5.6 K/uL (4.8-10.8)
[2023-08-12] MEDS ORDERED: DOPamine PREMIX 250 ML IV PRN (08:45)
[2023-08-12] MEDS: FLUDROCORTISONE ACETATE 0.1 MG TABLET( FLORINEF) PO ONE (10:33)
[2023-08-12] MEDS: POLYETHYLENE GLYCOL 3350, 17 GM/ POWD.PACK PO PRN (21:48)
[2023-08-13] VITALS (30 sets, daily range): BP systolic 85–120; PULSE 40–65; RESP 11–21; TEMP 97.6–98.3; O2SAT 93–100
[2023-08-13 07:02] LABS: BASOPHILS % (AUTO) 0.7 % (0.0-2.0); EOSINOPHILS # (AUTO) 0.3 K/uL (0.0-0.4); EOSINOPHILS % (AUTO) 5.5 % (0.0-4.0); HEMATOCRIT 39.4 % (36-54); HEMOGLOBIN 13.2 g/dL (14.0-18.0); LYMPHOCYTES # (AUTO) 1.2 K/uL (1.0-5.5); LYMPHOCYTES % (AUTO) 22.9 % (20.5-51.5); MEAN CORPUSCULAR HEMOGLOBIN 32 pg (27-31); MEAN CORPUSCULAR HGB CONC 34 % (32-36); MEAN CORPUSCULAR VOLUME 95 fL (79.0-98.0); MONOCYTES # (AUTO) 0.5 K/uL (0.0-1.0); MONOCYTES % (AUTO) 10.2 % (1.7-9.3); NEUTROPHILS # (AUTO) 3.2 K/uL (1.8-7.7); NEUTROPHILS % (AUTO) 60.7 % (40.0-70.0); PLATELET COUNT (AUTO) 215 K/uL (130-430); RED BLOOD CELL COUNT(AUTO) 4.17 MIL/uL (4.2-6.2); RED CELL DISTRIBUTION WIDTH 12.9 % (9.0-15.0); WHITE BLOOD COUNT (AUTO) 5.3 K/uL (4.8-10.8)
[2023-08-13 08:17] LABS: CALCIUM 8.2 mg/dL (8.4-11.0); CREATININE 0.95 mg/dL (0.55-1.30)
[2023-08-13] MEDS: FLUDROCORTISONE ACETATE 0.1 MG TABLET( FLORINEF) PO SCH (08:43)
[2023-08-13 09:28] LABS: ERYTHROCYTE SEDIMENTATION RATE 72 MM/HR (0-15)
[2023-08-14] VITALS (20 sets, daily range): BP systolic 94–121; PULSE 39–70; RESP 11–16; TEMP 97.5–99.8; O2SAT 93–100
[2023-08-14 05:08] LABS: ERYTHROCYTE SEDIMENTATION RATE 57 MM/HR (0-15)
[2023-08-14 05:20] LABS: BASOPHILS % (AUTO) 0.4 % (0.0-2.0); EOSINOPHILS # (AUTO) 0.2 K/uL (0.0-0.4); EOSINOPHILS % (AUTO) 3.8 % (0.0-4.0); HEMATOCRIT 39.1 % (36-54); HEMOGLOBIN 13.2 g/dL (14.0-18.0); LYMPHOCYTES # (AUTO) 1.3 K/uL (1.0-5.5); LYMPHOCYTES % (AUTO) 25.4 % (20.5-51.5); MEAN CORPUSCULAR HEMOGLOBIN 32 pg (27-31); MEAN CORPUSCULAR HGB CONC 34 % (32-36); MEAN CORPUSCULAR VOLUME 94 fL (79.0-98.0); MONOCYTES # (AUTO) 0.6 K/uL (0.0-1.0); MONOCYTES % (AUTO) 11.8 % (1.7-9.3); NEUTROPHILS # (AUTO) 2.9 K/uL (1.8-7.7); NEUTROPHILS % (AUTO) 58.6 % (40.0-70.0); PLATELET COUNT (AUTO) 223 K/uL (130-430); RED BLOOD CELL COUNT(AUTO) 4.18 MIL/uL (4.2-6.2); RED CELL DISTRIBUTION WIDTH 13.2 % (9.0-15.0)
[2023-08-14 05:36] LABS: ALBUMIN 2.8 g/dL (3.4-4.8); CALCIUM 8.1 mg/dL (8.4-11.0); CREATININE 1.05 mg/dL (0.55-1.30); POTASSIUM 4.2 mmol/L (3.5-5.1); TOTAL BILIRUBIN 0.2 mg/dL (0.0-1.0); TOTAL PROTEIN, SERUM 7.9 g/dL (6.4-8.3)
[2023-08-14] MEDS: CALCIUM GLUC 2 GM/100ML-NACL 100 ML IV ONE (11:07)
[2023-08-14] MEDS ORDERED: GADOBENATE DIMEGLUMINE 529 MG/ML, 5 ML VIAL IV ONE (12:59)
[2023-08-14] MEDS: ACETAMINOPHEN 325 MG TABLET PO PRN (23:31)
[2023-08-15] VITALS (11 sets, daily range): BP systolic 94–120; PULSE 48–69; RESP 16–17; TEMP 96.7–97.8; O2SAT 91–99
[2023-08-15 06:10] LABS: BASOPHILS % (AUTO) 0.4 % (0.0-2.0); EOSINOPHILS # (AUTO) 0.2 K/uL (0.0-0.4); EOSINOPHILS % (AUTO) 2.3 % (0.0-4.0); HEMATOCRIT 37.7 % (36-54); HEMOGLOBIN 12.9 g/dL (14.0-18.0); LYMPHOCYTES # (AUTO) 1.3 K/uL (1.0-5.5); LYMPHOCYTES % (AUTO) 18.1 % (20.5-51.5); MEAN CORPUSCULAR HEMOGLOBIN 32 pg (27-31); MEAN CORPUSCULAR HGB CONC 34 % (32-36); MEAN CORPUSCULAR VOLUME 93 fL (79.0-98.0); MONOCYTES # (AUTO) 0.6 K/uL (0.0-1.0); MONOCYTES % (AUTO) 9.1 % (1.7-9.3); NEUTROPHILS # (AUTO) 4.9 K/uL (1.8-7.7); NEUTROPHILS % (AUTO) 70.1 % (40.0-70.0); PLATELET COUNT (AUTO) 217 K/uL (130-430); RED BLOOD CELL COUNT(AUTO) 4.07 MIL/uL (4.2-6.2); WHITE BLOOD COUNT (AUTO) 6.9 K/uL (4.8-10.8)
[2023-08-15 06:12] LABS: ERYTHROCYTE SEDIMENTATION RATE 76 MM/HR (0-15)
[2023-08-15 06:32] LABS: CALCIUM 8.2 mg/dL (8.4-11.0); CREATININE 1.03 mg/dL (0.55-1.30)
[2023-08-15] MEDS ORDERED: FLOR.1 PO (09:53)
[2023-08-15] MEDS ORDERED: MIDO5TAB4 PO (09:53)
[2023-08-16] VITALS (8 sets, daily range): BP systolic 94–124; PULSE 60–66; RESP 18; TEMP 97.7–98.2; O2SAT 92–98
[2023-08-16 06:54] LABS: BASOPHILS % (AUTO) 0.3 % (0.0-2.0); EOSINOPHILS # (AUTO) 0.1 K/uL (0.0-0.4); EOSINOPHILS % (AUTO) 1.7 % (0.0-4.0); HEMATOCRIT 38.9 % (36-54); HEMOGLOBIN 13.2 g/dL (14.0-18.0); LYMPHOCYTES # (AUTO) 1.1 K/uL (1.0-5.5); LYMPHOCYTES % (AUTO) 12.9 % (20.5-51.5); MEAN CORPUSCULAR HEMOGLOBIN 32 pg (27-31); MEAN CORPUSCULAR HGB CONC 34 % (32-36); MEAN CORPUSCULAR VOLUME 94 fL (79.0-98.0); MONOCYTES # (AUTO) 0.7 K/uL (0.0-1.0); MONOCYTES % (AUTO) 8.1 % (1.7-9.3); NEUTROPHILS # (AUTO) 6.7 K/uL (1.8-7.7); PLATELET COUNT (AUTO) 223 K/uL (130-430); RED BLOOD CELL COUNT(AUTO) 4.13 MIL/uL (4.2-6.2); RED CELL DISTRIBUTION WIDTH 13.2 % (9.0-15.0); WHITE BLOOD COUNT (AUTO) 8.7 K/uL (4.8-10.8)
[2023-08-16 07:00] LABS: ERYTHROCYTE SEDIMENTATION RATE 89 MM/HR (0-15)
[2023-08-16 07:42] LABS: ALBUMIN 2.8 g/dL (3.4-4.8); CALCIUM 8.4 mg/dL (8.4-11.0); CREATININE 1.03 mg/dL (0.55-1.30); TOTAL BILIRUBIN 0.2 mg/dL (0.0-1.0); TOTAL PROTEIN, SERUM 7.8 g/dL (6.4-8.3)
== END 2023-08-16 12:00 | disposition home or self-care (01) | DRG 720 ==
LOC: SED 22:22 → SMU 08-05 04:41 → SIC 08-06 08:00 → STU 08-15 → SMU 08-16 08:08
PROVIDERS: ADMIT Preventive Medicine Preventive Medicine/Occupational Environmental Medicine; ATTEND Preventive Medicine Preventive Medicine/Occupational Environmental Medicine
PROC: 02HV33Z Insertion of Infusion Device into Superior Vena Cava, Percutaneous Approach (ICD-10-PCS; principal; 2023-08-05)
PROC: B548ZZA Ultrasonography of Superior Vena Cava, Guidance (ICD-10-PCS; 2023-08-05)
DX: A41.9 Sepsis, unspecified organism (principal); J96.01 Acute respiratory failure with hypoxia; J69.0 Pneumonitis due to inhalation of food and vomit; I50.33 Acute on chronic diastolic (congestive) heart failure; I95.9 Hypotension, unspecified; F73 Profound intellectual disabilities; D64.9 Anemia, unspecified; E83.51 Hypocalcemia; E83.52 Hypercalcemia; E88.09 Other disorders of plasma-protein metabolism, not elsewhere classified; G40.909 Epilepsy, unspecified, not intractable, without status epilepticus; I25.10 Atherosclerotic heart disease of native coronary artery without angina pectoris; K76.9 Liver disease, unspecified; Z85.038 Personal history of other malignant neoplasm of large intestine; Z85.05 Personal history of malignant neoplasm of liver; Z79.899 Other long term (current) drug therapy; K44.9 Diaphragmatic hernia without obstruction or gangrene
CPT/HCPCS: 36415; 36600; 70450-TC; 71045; 80048; 80053; 80307; 82140; 82378; 82803; 82948; 83880; 84484; 85025; 85610; 85651; 85730; 87040; 87081; 92610-GN; 93005; 93306; 94640; 94760; 97110-GP; 97530-GP; 99291; A9577; G0378; J0456; J0461; J1265; J1940; J2543; J3370; J7050; J7060

== ENCOUNTER 2023-10-08 16:11 | Emergency (ER) | payer MEDICAID ==
[~2023-10-08] VITALS: Ht 170.2 cm; Wt 81.6 kg
[~2023-10-08 16:11] MED LIST changes: +ATOR20TA64 PO; +CLOT15CR5 TP; +FLOR.1 PO; +FURO20TA4 PO; -LEVA0.31 IH; +LEVE500T21 PO; +MIDO5TAB4 PO; -PHEN30TA49 PO; -[UNRECOGNIZED DRUG - CODE] IM; -[UNRECOGNIZED DRUG - CODE] PO
[2023-10-08 16:24] VITALS: BP_SYST 123; PULSE 48; RESP 16; TEMP 96.9; O2SAT 97
[2023-10-08 17:00] LABS: BASOPHILS # (AUTO) 0.1 K/uL (0.0-0.2); BASOPHILS % (AUTO) 2.3 % (0.0-2.0); EOSINOPHILS # (AUTO) 0.2 K/uL (0.0-0.4); EOSINOPHILS % (AUTO) 4.7 % (0.0-4.0); HEMATOCRIT 44.8 % (36-54); HEMOGLOBIN 15.2 g/dL (14.0-18.0); LYMPHOCYTES # (AUTO) 1.2 K/uL (1.0-5.5); LYMPHOCYTES % (AUTO) 26.1 % (20.5-51.5); MEAN CORPUSCULAR HEMOGLOBIN 32 pg (27-31); MEAN CORPUSCULAR HGB CONC 34 % (32-36); MEAN CORPUSCULAR VOLUME 94 fL (79.0-98.0); MONOCYTES # (AUTO) 0.6 K/uL (0.0-1.0); MONOCYTES % (AUTO) 12.9 % (1.7-9.3); NEUTROPHILS # (AUTO) 2.5 K/uL (1.8-7.7); PLATELET COUNT (AUTO) 171 K/uL (130-430); RED BLOOD CELL COUNT(AUTO) 4.75 MIL/uL (4.2-6.2); RED CELL DISTRIBUTION WIDTH 13.7 % (9.0-15.0); WHITE BLOOD COUNT (AUTO) 4.6 K/uL (4.8-10.8)
[2023-10-08 17:24] LABS: ANION GAP 9 (5-15); CALCIUM 8.6 mg/dL (8.4-11.0); CARBON DIOXIDE 30 mmol/L (23-29); CHLORIDE 102 mmol/L (98-107); CREATININE 0.82 mg/dL (0.55-1.30); GFR AFRICAN AMERICAN 122 mL/min (>90); GFR NON AFRICAN-AMERICAN 101 mL/min (>90); GLUCOSE 109 mg/dL (74-106); POTASSIUM 3.6 mmol/L (3.5-5.1); SODIUM SERUM 141 mmol/L (136-145); UREA NITROGEN, BLOOD 15 mg/dL (8-21)
[2023-10-08 19:25] VITALS: BP_SYST 123; PULSE 53; RESP 16; TEMP 96.9; O2SAT 97
== END 2023-10-08 19:25 | disposition home or self-care (01) ==
LOC: SED 16:11
DX: R22.31 Localized swelling, mass and lump, right upper limb (principal); I50.9 Heart failure, unspecified; Z79.899 Other long term (current) drug therapy; Z79.2 Long term (current) use of antibiotics
CPT/HCPCS: 36415; 71045; 80048; 83880; 84484; 85025; 93005; 99285